=== PATIENT | male | born 1980 | race Caucasian/White ===

== ENCOUNTER 2016-11-21 14:23 | Emergency (ER) | payer MEDICAID, OTHER, SELFPAY ==
[~2016-11-21 14:23] MED LIST: /QUET10TA PO; SERO200T PO; XANA1TAB2 PO
[2016-11-21] MEDS ORDERED: LORazepam 2 MG/ML VIAL (J2060) As Ordered ONE (14:59)
[2016-11-21 15:11] LABS: MEAN CORPUSCULAR HEMOGLOBIN 31.3 pg (27.0-33.0); MEAN CORPUSCULAR HGB CONC 35.3 g/dl (32.0-36.5); MEAN CORPUSCULAR VOLUME 88.8 fl (80.0-96.0); PLATELET COUNT, AUTOMATED 207 k/mm3 (150-450); RED CELL DISTRIBUTION WIDTH 12.4 % (11.5-14.5)
[2016-11-21 15:21] LABS: ANION GAP 10 MEQ/L (8-16); BLOOD UREA NITROGEN 11 MG/DL (7-18); CALCIUM LEVEL 8.5 MG/DL (8.5-10.1); CARBON DIOXIDE LEVEL 26 MEQ/L (21-32); CHLORIDE LEVEL 104 MEQ/L (98-107); CREATININE FOR GFR 0.95 MG/DL (0.70-1.30); GLOMERULAR FILTRATION RATE > 60.0 (>60); GLUCOSE, FASTING 106 MG/DL (70-105); POTASSIUM SERUM 3.9 MEQ/L (3.5-5.1); SODIUM LEVEL 140 MEQ/L (136-145)
[2016-11-21] MEDS ORDERED: hydroCHLOROthiazide 25 MG TAB As Ordered ONE (16:35)
[2016-11-21] MEDS ORDERED: LISINOPRIL 10 MG TAB As Ordered ONE (16:35)
--- NOTE | 2016-11-21 16:37 | REP ---
Head CT without contrast: History: Hypertensive urgency. Comparison study: February 05, 2013. CT findings: Bone window settings demonstrate an intact bony calvarium. There is no evidence of skull fracture or incidental bony calvarial lesion. The visualized paranasal sinuses appear clear. No intraorbital abnormality is seen. On soft tissue window setting images; the lateral, third, and fourth ventricles are normal in size and position. Allred-white differentiation pattern is normal above and below the tentorium. There are is no evidence of intracranial hemorrhage. No mass, edema, infarction, or midline shift is seen. No extra-axial fluid collection is appreciated. Impression: Negative noncontrast head CT. Signed by Rex Blanca MD 11/21/2016 04:28 P
--- NOTE | 2016-11-21 16:57 | REP ---
Chest x-ray: Two views. History: Hypertension. Comparison chest x-ray August 01, 2016. Findings: EKG monitoring electrodes overlie the chest. Lungs are well inflated and clear. Pleural angles are sharp. Heart size is normal. Pulmonary vasculature is not increased. Impression: Negative chest x-ray. Signed by Rex Blanca MD 11/21/2016 05:02 P
[2016-11-21 17:17] LABS: AMPHETAMINES LEVEL URINE NEGATIVE (NEGATIVE); BENZODIAZEPINES URINE NEGATIVE (NEGATIVE); COCAINE METABOLITE URINE NEGATIVE (NEGATIVE); CONTROL LINE INT CTR LINE PRESENT; METHADONE URINE NEGATIVE (NEGATIVE); OPIATES URINE NEGATIVE (NEGATIVE); TRICYCLIC ANTIDEPRESS URINE NEGATIVE (NEGATIVE)
[2016-11-21] MEDS ORDERED: LABETALOL 100 MG TAB As Ordered ONE (17:44)
[2016-11-21] MEDS ORDERED: LABETALOL HCL 100 MG/20 ML VIAL As Ordered ONE (17:44)
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
--- NOTE | 2016-11-21 19:23 | EDDOCDS ---
Physician Documentation [facility] Name: Tej Mccarthy Age: 36 yrs Sex: Male : 1980 Arrival Date: 11/21/2016 Time: 14:23 Bed 9 Private MD: Disposition: 11/21 18:44 Critical Care: Critical care not applicable. pc Disposition: 11/21/16 18:45 Discharged to Home/Self Care. Impression: Essential (primary) hypertension - without urgency or emergency, Anxiety disorder, unspecified. - Condition is Stable. - Discharge Instructions: Hypertension, Generalized Anxiety Disorder. - Prescriptions for Hydrochlorothiazide 25 mg Oral Tablet - take 0.5 tablet by ORAL route once daily .; 15 tablet. Lisinopril 10 mg Oral Tablet - take 1 tablet by ORAL route once daily; 30 tablet. - Medication Reconciliation, Local Pharmacy Hours form. - Follow up: Referral list, As provided by [facility]; When: Call to arrange an appointment; Reason: To establish care. Follow up: Patrick Schneider; When: Call to arrange an appointment; Reason: To establish care. [facility]: [facility]; When: Call to arrange an appointment; Reason: To establish care. - Problem is new. - Symptoms have improved. HPI: 16:22 This 36 yrs old Male presents to ER via Ambulance with complaints of High pc Blood Pressure. 16:22 The history is obtained from the patient. pc 16:33 He was filling out work forms and felt overcome, became very anxious and panicked. This pc has been happening for the past 3-4 weeks. The patient has not recently seen a physician. Historical: - Allergies: no known allergies; - Home Meds: 1. none - PMHx: none; - PSHx: left wrist; - The history from nurses notes was reviewed: and I agree with what is documented. - Social history: Smoking status: Patient states former smoker of tobacco. No barriers to communication noted, The patient speaks fluent Malay, Speaks appropriately for age. - Family history: Not pertinent. - : The pt / caregiver states he / she is not on anticoagulants. Home medication list is obtained from the patient. - Hospitalizations: : No recent hospitalization is reported. - Exposure Risk Screening:: None identified. - Immunization history:: All immunizations up-to-date. - Social history:: the patient is a non-smoker, the patient drinks alcohol, socially. ROS: 16:33 All systems are negative except as listed. pc Exam: 16:33 General Appearance: alert, anxious. pc 16:33 EENT: normal eye inspection, ears, nose and throat normal, pharynx normal, mucous membranes moist 16:33 Neck: The exam reveals no acute abnormalities. ROM is normal and painless. No nuchal rigidity is noted.. 16:33 Respiratory: no respiratory distress, normal breath sounds. 16:33 CVS: regular rhythm, normal S1 and S2, no murmurs, strong peripheral pulses, the patient is tachycardic, at 120 bpm. 16:33 Abdomen: soft, non-tender, no organomegaly, normal bowel sounds. 16:33 Back: normal inspection. 16:33 Skin: skin color is normal, warm, dry. 16:33 Extremities: The extremities have a grossly normal appearance, are non-tender, without acute ROM abnormalities. 16:33 Neuro: oriented x 3, cranial nerves normal as tested, no motor deficits, no sensory deficits. 16:33 Psych: normal mood. Vital Signs: 14:39 BP 180 / 115; Pulse 129; Resp 18; Temp 98.6(O); Pulse Ox 96% on R/A; Weight 104.33 kg / lr2 230.01 lbs (R); Height 5 ft. 11 in. (180.34 cm) (R); 15:45 BP 183 / 108 (auto/); bcj 15:47 Pulse 118 MON; bcj 17:17 BP 183 / 115 (auto/); bcj 17:17 Pulse 122 MON; bcj 17:48 BP 141 / 92 (auto/); bcj 17:48 Pulse 118 MON; bcj 19:15 BP 155 / 98; Pulse 105; Resp 18; Temp 97.8(T); Pulse Ox 97% on R/A; Pain 0/10; esdras 14:39 Body Mass Index 32.08 (104.33 kg, 180.34 cm) lr2 MDM: 14:36 ECG WITH READING ER PHYS+CARDIAG ordered. EDMS 14:47 Test interpretation: EKG. pc 14:56 IV Saline Lock ordered. pc 14:56 LORazepam 1 mg IVP once ordered. pc 14:56 [employer]person [employer]/Pulse Ox/q 30 min VS ordered. pc 14:57 MED Profile Ordered. EDMS 14:57 TSH w/o Free T4 Ordered. EDMS 15:02 COMPLETE BLOOD COUNT Ordered. EDMS 15:02 MANUAL DIFFFERENTIAL Ordered. EDMS 16:04 MED Profile Reviewed. pc 16:04 MANUAL DIFFFERENTIAL Reviewed. pc 16:04 TSH w/o Free T4 Reviewed. pc 16:04 COMPLETE BLOOD COUNT Reviewed. pc 16:13 Drug Eval Toxicology ED Only Ordered. EDMS 16:14 Chest, 2 View (pa\E\lat) Ordered. EDMS 16:14 CT Head Without Contrast Ordered. EDMS 16:22 Lisinopril 10 mg PO once ordered. pc 16:22 Hydrochlorothiazide 25 mg PO once ordered. pc 16:33 Differential Diagnosis: anxiety and panic attacks; elevated BP with prior records pc showing elevated readings and suggesting long-standing HTN. Plan: labs, meds, EKG, imaging. Data reviewed: old medical records, vital signs, nurses notes, EKG(s), lab test results, all radiology studies and available results. Test interpretation: LAB - all labs as ordered have been reviewed, interpreted and considered in the overall management of the clinical presentation;. Physician consultation: Dr. Patrick Schneider regarding patient's condition, and advises the medications/treatment as provided. and agrees with the treatment provided and advises the discharge plans as outlined. 16:40 Financial registration complete. zo 17:18 [facility] Payment Agreement was scanned into [employer] and attached to record. zo 17:20 LORazepam 1 mg IVP once ordered. bcj 17:32 Drug Eval Toxicology ED Only Reviewed. pc 17:32 Chest, 2 View (pa\E\lat) Reviewed. pc 17:32 CT Head Without Contrast Reviewed. pc 17:38 Labetalol 20 mg IVP at bolus once over 2 mins ordered. pc 17:38 Labetalol 100 mg PO once ordered. pc 18:44 The patient has been re-examined and re-evaluated. The patient's symptoms have markedly pc improved after treatment. Other consultation: The ED workers compensation claims supervisor was notified and will evaluate the patient. 18:44 Disposition: The historical points, examination findings, and any diagnostic results pc supporting the provided diagnosis, were discussed with the patient or legal guardian. The need for outpatient follow up with the provider listed on their discharge instructions was discussed. They were encouraged to return to [facility], or the nearest ED, if symptoms worsen/persist, or for any other questions/concerns. EC:47 Rate is 120 beats/min. Rhythm is regular, Sinus tachycardia. QRS [place] is Normal. ME pc interval is normal. QRS interval is normal. QT interval is normal. No Q waves. T waves are Normal. No ST changes noted. Clinical impression: Sinus tachycardia. Administered Medications: 15:04 Drug: LORazepam 1 mg [lorazepam 2 mg/mL injection solution (0.5 mL)] Route: IVP; Site: [facility] right antecubital; 17:20 Drug: Lisinopril 10 mg [lisinopril 10 mg tablet (1 tabs)] Route: PO; j 17:20 Drug: Hydrochlorothiazide 25 mg [hydrochlorothiazide 25 mg tablet (1 tabs)] Route: PO; j 17:20 Drug: LORazepam 1 mg [lorazepam 2 mg/mL injection solution (0.5 mL)] Route: IVP; Site: [facility] right antecubital; 17:50 Drug: Labetalol 20 mg [labetalol 5 mg/mL intravenous solution (3.75 mL)] Route: IVP; [facility] Rate: bolus; Infused Over: 2 mins; Site: right antecubital; 17:50 Drug: Labetalol 100 mg [labetalol 100 mg tablet (1 tabs)] Route: PO; bcj Signatures: Dispatcher [employer] EDMS Stef Johnson MD MD pc Johnson, Bruce, RN RN bcj Michelson, Staci, RN RN srm Olin, Zoeann zo Ogden, KariRN RN ko2 The chart was reviewed and I authenticate all verbal orders and agree with the evaluation and treatment provided.Corrections: (The following items were deleted from the chart) 15:02 14:57 CBC WITH DIFFERENTIAL+LAB ordered. EDMS EDMS Attachments: 17:18 [facility] Payment Agreement zo MTDD
--- NOTE | 2016-11-22 20:42 | ECGEPIP ---
Stationary ECG Study [facility] - ED Test Date: 2016-11-21 Pat Name: HERBERT NOBLE Department: Room: - Gender: M Head Of Science: : 1980 Requested By: Stef Chapman Order Number: [id number] Reading MD: Vikki Arredondo Measurements Intervals [place] Rate: 120 P: 25 NH: 144 QRS: 42 QRSD: 89 T: 0 QT: 296 QTc: 420 Interpretive Statements SINUS TACHYCARDIA ABNORMAL RHYTHM ECG NSTTW ABNORMALITY SIMILAR 02/05/13 Electronically Signed On 11-22-2016 20:42:13 EST by Vikki Arredondo
--- NOTE | 2016-11-23 20:23 | EDDOCDS ---
Physician Documentation [facility] Name: Tej Mccarthy Age: 36 yrs Sex: Male : 1980 Arrival Date: 11/21/2016 Time: 14:23 Bed 9 Private MD: Disposition: 11/21 18:44 Critical Care: Critical care not applicable. pc Disposition: 11/21/16 18:45 Discharged to Home/Self Care. Impression: Essential (primary) hypertension - without urgency or emergency, Anxiety disorder, unspecified. - Condition is Stable. - Discharge Instructions: Hypertension, Generalized Anxiety Disorder. - Prescriptions for Hydrochlorothiazide 25 mg Oral Tablet - take 0.5 tablet by ORAL route once daily .; 15 tablet. Lisinopril 10 mg Oral Tablet - take 1 tablet by ORAL route once daily; 30 tablet. - Medication Reconciliation, Local Pharmacy Hours form. - Follow up: Referral list, As provided by [facility]; When: Call to arrange an appointment; Reason: To establish care. Follow up: Patrick Schneider; When: Call to arrange an appointment; Reason: To establish care. [facility]; When: Call to arrange an appointment; Reason: To establish care. - Problem is new. - Symptoms have improved. HPI: 16:22 This 36 yrs old Male presents to ER via Ambulance with complaints of High pc Blood Pressure. 16:22 The history is obtained from the patient. pc 16:33 He was filling out work forms and felt overcome, became very anxious and panicked. This pc has been happening for the past 3-4 weeks. The patient has not recently seen a physician. Historical: - Allergies: no known allergies; - Home Meds: 1. none - PMHx: none; - PSHx: left wrist; - The history from nurses notes was reviewed: and I agree with what is documented. - Social history: Smoking status: Patient states former smoker of tobacco. No barriers to communication noted, The patient speaks fluent Greek, Speaks appropriately for age. - Family history: Not pertinent. - : The pt / caregiver states he / she is not on anticoagulants. Home medication list is obtained from the patient. - Hospitalizations: : No recent hospitalization is reported. - Exposure Risk Screening:: None identified. - Immunization history:: All immunizations up-to-date. - Social history:: the patient is a non-smoker, the patient drinks alcohol, socially. ROS: 16:33 All systems are negative except as listed. pc Exam: 16:33 General Appearance: alert, anxious. pc 16:33 EENT: normal eye inspection, ears, nose and throat normal, pharynx normal, mucous membranes moist 16:33 Neck: The exam reveals no acute abnormalities. ROM is normal and painless. No nuchal rigidity is noted.. 16:33 Respiratory: no respiratory distress, normal breath sounds. 16:33 CVS: regular rhythm, normal S1 and S2, no murmurs, strong peripheral pulses, the patient is tachycardic, at 120 bpm. 16:33 Abdomen: soft, non-tender, no organomegaly, normal bowel sounds. 16:33 Back: normal inspection. 16:33 Skin: skin color is normal, warm, dry. 16:33 Extremities: The extremities have a grossly normal appearance, are non-tender, without acute ROM abnormalities. 16:33 Neuro: oriented x 3, cranial nerves normal as tested, no motor deficits, no sensory deficits. 16:33 Psych: normal mood. Vital Signs: 14:39 BP 180 / 115; Pulse 129; Resp 18; Temp 98.6(O); Pulse Ox 96% on R/A; Weight 104.33 kg / lr2 230.01 lbs (R); Height 5 ft. 11 in. (180.34 cm) (R); 15:45 BP 183 / 108 (auto/); bcj 15:47 Pulse 118 MON; bcj 17:17 BP 183 / 115 (auto/); bcj 17:17 Pulse 122 MON; bcj 17:48 BP 141 / 92 (auto/); bcj 17:48 Pulse 118 MON; bcj 19:15 BP 155 / 98; Pulse 105; Resp 18; Temp 97.8(T); Pulse Ox 97% on R/A; Pain 0/10; esdras 14:39 Body Mass Index 32.08 (104.33 kg, 180.34 cm) lr2 MDM: 14:36 ECG WITH READING ER PHYS+CARDIAG ordered. EDMS 14:47 Test interpretation: EKG. pc 14:56 IV Saline Lock ordered. pc 14:56 LORazepam 1 mg IVP once ordered. pc 14:56 Primer Waterproofing Machine Adjuster/Pulse Ox/q 30 min VS ordered. pc 14:57 MED Profile Ordered. EDMS 14:57 TSH w/o Free T4 Ordered. EDMS 15:02 COMPLETE BLOOD COUNT Ordered. EDMS 15:02 MANUAL DIFFFERENTIAL Ordered. EDMS 16:04 MED Profile Reviewed. pc 16:04 MANUAL DIFFFERENTIAL Reviewed. pc 16:04 TSH w/o Free T4 Reviewed. pc 16:04 COMPLETE BLOOD COUNT Reviewed. pc 16:13 Drug Eval Toxicology ED Only Ordered. EDMS 16:14 Chest, 2 View (pa\E\lat) Ordered. EDMS 16:14 CT Head Without Contrast Ordered. EDMS 16:22 Lisinopril 10 mg PO once ordered. pc 16:22 Hydrochlorothiazide 25 mg PO once ordered. pc 16:33 Differential Diagnosis: anxiety and panic attacks; elevated BP with prior records pc showing elevated readings and suggesting long-standing HTN. Plan: labs, meds, EKG, imaging. Data reviewed: old medical records, vital signs, nurses notes, EKG(s), lab test results, all radiology studies and available results. Test interpretation: LAB - all labs as ordered have been reviewed, interpreted and considered in the overall management of the clinical presentation;. Physician consultation: Dr. Patrick Schneider regarding patient's condition, and advises the medications/treatment as provided. and agrees with the treatment provided and advises the discharge plans as outlined. 16:40 Financial registration complete. zo 17:18 [facility] [place] Payment Agreement was scanned into [employer] and attached to record. zo 17:20 LORazepam 1 mg IVP once ordered. bcj 17:32 Drug Eval Toxicology ED Only Reviewed. pc 17:32 Chest, 2 View (pa\E\lat) Reviewed. pc 17:32 CT Head Without Contrast Reviewed. pc 17:38 Labetalol 20 mg IVP at bolus once over 2 mins ordered. pc 17:38 Labetalol 100 mg PO once ordered. pc 18:44 The patient has been re-examined and re-evaluated. The patient's symptoms have markedly pc improved after treatment. Other consultation: The ED rattan worker was notified and will evaluate the patient. 18:44 Disposition: The historical points, examination findings, and any diagnostic results pc supporting the provided diagnosis, were discussed with the patient or legal guardian. The need for outpatient follow up with the provider listed on their discharge instructions was discussed. They were encouraged to return to [facility], or the nearest ED, if symptoms worsen/persist, or for any other questions/concerns. 11/22 10:05 ECG/EKG was scanned into [employer] and attached to record. 10:05 PCR was scanned into [employer] and attached to record. 10:06 Rhythm Strip was scanned into [employer] and attached to record. EC/30 14:47 Rate is 120 beats/min. Rhythm is regular, Sinus tachycardia. QRS [place] is Normal. RI pc interval is normal. QRS interval is normal. QT interval is normal. No Q waves. T waves are Normal. No ST changes noted. Clinical impression: Sinus tachycardia. Administered Medications: 15:04 Drug: LORazepam 1 mg [lorazepam 2 mg/mL injection solution (0.5 mL)] Route: IVP; Site: [facility] right antecubital; 17:20 Drug: Lisinopril 10 mg [lisinopril 10 mg tablet (1 tabs)] Route: PO; j 17:20 Drug: Hydrochlorothiazide 25 mg [hydrochlorothiazide 25 mg tablet (1 tabs)] Route: PO; [facility] 17:20 Drug: LORazepam 1 mg [lorazepam 2 mg/mL injection solution (0.5 mL)] Route: IVP; Site: j right antecubital; 17:50 Drug: Labetalol 20 mg [labetalol 5 mg/mL intravenous solution (3.75 mL)] Route: IVP; j Rate: bolus; Infused Over: 2 mins; Site: right antecubital; 17:50 Drug: Labetalol 100 mg [labetalol 100 mg tablet (1 tabs)] Route: PO; bcj Signatures: Dispatcher MedHo EDMS Stef Johnson MD MD pc Johnson, Bruce, RN RN Roxy Ro RN RN [facility] Erica Elizabeth, Kika Traore KariRN RN ko2 The chart was reviewed and I authenticate all verbal orders and agree with the evaluation and treatment provided.Corrections: (The following items were deleted from the chart) 15:02 14:57 CBC WITH DIFFERENTIAL+LAB ordered. EDMS EDMS Attachments: 17:18 [facility] Payment Agreement zo 11/22 10:05 ECG/EKG gb Chart Complete MTDD
--- NOTE | 2016-11-23 20:23 | EDDOCDS ---
Physician Documentation [facility] Name: Tej Mccarthy Age: 36 yrs Sex: Male : 1980 Arrival Date: 11/21/2016 Time: 14:23 Bed 9 Private MD: Disposition: 11/21 18:44 Critical Care: Critical care not applicable. pc Disposition: 11/21/16 18:45 Discharged to Home/Self Care. Impression: Essential (primary) hypertension - without urgency or emergency, Anxiety disorder, unspecified. - Condition is Stable. - Discharge Instructions: Hypertension, Generalized Anxiety Disorder. - Prescriptions for Hydrochlorothiazide 25 mg Oral Tablet - take 0.5 tablet by ORAL route once daily .; 15 tablet. Lisinopril 10 mg Oral Tablet - take 1 tablet by ORAL route once daily; 30 tablet. - Medication Reconciliation, Local Pharmacy Hours form. - Follow up: Referral list, As provided by [facility]; When: Call to arrange an appointment; Reason: To establish care. Follow up: Patrick Schneider; When: Call to arrange an appointment; Reason: To establish care. [facility]; When: Call to arrange an appointment; Reason: To establish care. - Problem is new. - Symptoms have improved. HPI: 16:22 This 36 yrs old Male presents to ER via Ambulance with complaints of High pc Blood Pressure. 16:22 The history is obtained from the patient. pc 16:33 He was filling out work forms and felt overcome, became very anxious and panicked. This pc has been happening for the past 3-4 weeks. The patient has not recently seen a physician. Historical: - Allergies: no known allergies; - Home Meds: 1. none - PMHx: none; - PSHx: left wrist; - The history from nurses notes was reviewed: and I agree with what is documented. - Social history: Smoking status: Patient states former smoker of tobacco. No barriers to communication noted, The patient speaks fluent Sinhala, Speaks appropriately for age. - Family history: Not pertinent. - : The pt / caregiver states he / she is not on anticoagulants. Home medication list is obtained from the patient. - Hospitalizations: : No recent hospitalization is reported. - Exposure Risk Screening:: None identified. - Immunization history:: All immunizations up-to-date. - Social history:: the patient is a non-smoker, the patient drinks alcohol, socially. ROS: 16:33 All systems are negative except as listed. pc Exam: 16:33 General Appearance: alert, anxious. pc 16:33 EENT: normal eye inspection, ears, nose and throat normal, pharynx normal, mucous membranes moist 16:33 Neck: The exam reveals no acute abnormalities. ROM is normal and painless. No nuchal rigidity is noted.. 16:33 Respiratory: no respiratory distress, normal breath sounds. 16:33 CVS: regular rhythm, normal S1 and S2, no murmurs, strong peripheral pulses, the patient is tachycardic, at 120 bpm. 16:33 Abdomen: soft, non-tender, no organomegaly, normal bowel sounds. 16:33 Back: normal inspection. 16:33 Skin: skin color is normal, warm, dry. 16:33 Extremities: The extremities have a grossly normal appearance, are non-tender, without acute ROM abnormalities. 16:33 Neuro: oriented x 3, cranial nerves normal as tested, no motor deficits, no sensory deficits. 16:33 Psych: normal mood. Vital Signs: 14:39 BP 180 / 115; Pulse 129; Resp 18; Temp 98.6(O); Pulse Ox 96% on R/A; Weight 104.33 kg / lr2 230.01 lbs (R); Height 5 ft. 11 in. (180.34 cm) (R); 15:45 BP 183 / 108 (auto/); bcj 15:47 Pulse 118 MON; bcj 17:17 BP 183 / 115 (auto/); bcj 17:17 Pulse 122 MON; bcj 17:48 BP 141 / 92 (auto/); bcj 17:48 Pulse 118 MON; bcj 19:15 BP 155 / 98; Pulse 105; Resp 18; Temp 97.8(T); Pulse Ox 97% on R/A; Pain 0/10; esdras 14:39 Body Mass Index 32.08 (104.33 kg, 180.34 cm) lr2 MDM: 14:36 ECG WITH READING ER PHYS+CARDIAG ordered. EDMS 14:47 Test interpretation: EKG. pc 14:56 IV Saline Lock ordered. pc 14:56 LORazepam 1 mg IVP once ordered. pc 14:56 Roofing Subcontractor/Pulse Ox/q 30 min VS ordered. pc 14:57 MED Profile Ordered. EDMS 14:57 TSH w/o Free T4 Ordered. EDMS 15:02 COMPLETE BLOOD COUNT Ordered. EDMS 15:02 MANUAL DIFFFERENTIAL Ordered. EDMS 16:04 MED Profile Reviewed. pc 16:04 MANUAL DIFFFERENTIAL Reviewed. pc 16:04 TSH w/o Free T4 Reviewed. pc 16:04 COMPLETE BLOOD COUNT Reviewed. pc 16:13 Drug Eval Toxicology ED Only Ordered. EDMS 16:14 Chest, 2 View (pa\E\lat) Ordered. EDMS 16:14 CT Head Without Contrast Ordered. EDMS 16:22 Lisinopril 10 mg PO once ordered. pc 16:22 Hydrochlorothiazide 25 mg PO once ordered. pc 16:33 Differential Diagnosis: anxiety and panic attacks; elevated BP with prior records pc showing elevated readings and suggesting long-standing HTN. Plan: labs, meds, EKG, imaging. Data reviewed: old medical records, vital signs, nurses notes, EKG(s), lab test results, all radiology studies and available results. Test interpretation: LAB - all labs as ordered have been reviewed, interpreted and considered in the overall management of the clinical presentation;. Physician consultation: Dr. Patrick Schneider regarding patient's condition, and advises the medications/treatment as provided. and agrees with the treatment provided and advises the discharge plans as outlined. 16:40 Financial registration complete. zo 17:18 [facility] [place] Agreement was scanned into [employer] and attached to record. zo 17:20 LORazepam 1 mg IVP once ordered. bcj 17:32 Drug Eval Toxicology ED Only Reviewed. pc 17:32 Chest, 2 View (pa\E\lat) Reviewed. pc 17:32 CT Head Without Contrast Reviewed. pc 17:38 Labetalol 20 mg IVP at bolus once over 2 mins ordered. pc 17:38 Labetalol 100 mg PO once ordered. pc 18:44 The patient has been re-examined and re-evaluated. The patient's symptoms have markedly pc improved after treatment. Other consultation: The ED demolition worker was notified and will evaluate the patient. 18:44 Disposition: The historical points, examination findings, and any diagnostic results pc supporting the provided diagnosis, were discussed with the patient or legal guardian. The need for outpatient follow up with the provider listed on their discharge instructions was discussed. They were encouraged to return to [facility], or the nearest ED, if symptoms worsen/persist, or for any other questions/concerns. 11/22 10:05 ECG/EKG was scanned into [employer] and attached to record. 10:05 PCR was scanned into [employer] and attached to record. 10:06 Rhythm Strip was scanned into [employer] and attached to record. EC/30 14:47 Rate is 120 beats/min. Rhythm is regular, Sinus tachycardia. QRS [place] is Normal. ID pc interval is normal. QRS interval is normal. QT interval is normal. No Q waves. T waves are Normal. No ST changes noted. Clinical impression: Sinus tachycardia. Administered Medications: 15:04 Drug: LORazepam 1 mg [lorazepam 2 mg/mL injection solution (0.5 mL)] Route: IVP; Site: [facility] right antecubital; 17:20 Drug: Lisinopril 10 mg [lisinopril 10 mg tablet (1 tabs)] Route: PO; j 17:20 Drug: Hydrochlorothiazide 25 mg [hydrochlorothiazide 25 mg tablet (1 tabs)] Route: PO; [facility] 17:20 Drug: LORazepam 1 mg [lorazepam 2 mg/mL injection solution (0.5 mL)] Route: IVP; Site: j right antecubital; 17:50 Drug: Labetalol 20 mg [labetalol 5 mg/mL intravenous solution (3.75 mL)] Route: IVP; j Rate: bolus; Infused Over: 2 mins; Site: right antecubital; 17:50 Drug: Labetalol 100 mg [labetalol 100 mg tablet (1 tabs)] Route: PO; bcj Signatures: Dispatcher MedHo EDMS Stef Johnson MD MD pc Johnson, Bruce, RN RN Roxy Ro RN RN [facility] Erica Elizabeth, Kika Traore KariRN RN ko2 The chart was reviewed and I authenticate all verbal orders and agree with the evaluation and treatment provided.Corrections: (The following items were deleted from the chart) 15:02 14:57 CBC WITH DIFFERENTIAL+LAB ordered. EDMS EDMS Attachments: 17:18 [facility] Payment Agreement zo 11/22 10:05 ECG/EKG gb Chart Complete MTDD
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
== END 2016-11-21 19:22 | disposition home or self-care (01) ==
LOC: M ED 14:23
DX: F41.9 Anxiety disorder, unspecified (principal); I10 Essential (primary) hypertension; Z87.891 Personal history of nicotine dependence
CPT/HCPCS: 36415; 70450; 71020; 80048; 80306; 84443; 85007; 85027; 93005; 93041; 96374; 96375; 96376; 99285; J2060

== ENCOUNTER → 2016-12-09 | Outpatient (REF) | payer OTHER ==
[2016-12-09 17:58] LABS: CHOLESTEROL LEVEL 247 MG/DL (<200); TRIGLYCERIDES LEVEL 424 MG/DL (<150)
== END ==
LOC: M SFHCPLAZ 11:12
PROVIDERS: ATTEND Internal Medicine
DX: F41.9 Anxiety disorder, unspecified (principal); Z13.1 Encounter for screening for diabetes mellitus; Z13.220 Encounter for screening for lipoid disorders; I10 Essential (primary) hypertension

== ENCOUNTER 2018-07-04 17:51 | Observation (INO) | payer MEDICAID, OTHER ==
[2018-07-04 19:17] LABS: BASO # 0.1 10^3/uL (0.0-0.2); BASO % 0.5 % (0.0-1.0); EOS # 0.1 10^3/uL (0.0-0.50); EOS % 0.8 % (0.0-3.0); HEMATOCRIT 40.8 % (42.0-52.0); HEMOGLOBIN 14.7 g/dl (13.5-17.5); IMMATURE GRANULOCYTE % 0.3 % (0-3.0); LYMPH % 17.2 % (24.0-44.0); MEAN CORPUSCULAR HEMOGLOBIN 32.7 pg (27.0-33.0); MEAN CORPUSCULAR VOLUME 90.7 fl (80.0-96.0); MONO # 0.6 10^3/uL (0.0-0.8); MONO % 5.3 % (0.0-5.0); NEUTROPHILS # 8.8 10^3/uL (1.8-7.7); NEUTROPHILS % 75.9 % (36.0-66.0); PLATELET COUNT, AUTOMATED 215 10^3/uL (150-450); RED CELL DISTRIBUTION WIDTH 11.5 % (11.5-14.5); WHITE BLOOD COUNT 11.6 10^3/uL (4.0-10.0)
[2018-07-04] MEDS: MORPHINE 4 MG/ML 1ML VIAL/SYRINGE (J2270) IV (19:41)
[2018-07-04] MEDS: NS 1,000 ML IV (19:43)
[2018-07-04] MEDS: LISINOPRIL 10 MG TAB PO (19:45)
[2018-07-04] MEDS: PENICILLIN V POTASSIUM 500 MG TAB PO (19:45)
[2018-07-04] MEDS: hydroCHLOROthiazide 12.5 MG CAPSULE PO (19:45)
[2018-07-04 20:22] LABS: ALKALINE PHOSPHATASE 51 U/L (45-117); ANION GAP 7 MEQ/L (8-16); CALCIUM LEVEL 8.5 MG/DL (8.5-10.1); CARBON DIOXIDE LEVEL 25 MEQ/L (21-32); CHLORIDE LEVEL 107 MEQ/L (98-107); CK-MB VALUE MASS < 1.0 NG/ML (<3.6); CPK CREATINE PHOSPHOKINASE 136 U/L (39-308); CREATININE FOR GFR 0.92 MG/DL (0.70-1.30); GLOMERULAR FILTRATION RATE > 60.0 (>60); POTASSIUM SERUM 4.4 MEQ/L (3.5-5.1); SODIUM LEVEL 139 MEQ/L (136-145)
[2018-07-04 20:23] LABS: ALBUMIN 4.1 GM/DL (3.2-5.2); BILIRUBIN,DIRECT < 0.1 MG/DL (0.0-0.2); BILIRUBIN,TOTAL 0.5 MG/DL (0.2-1.0); GLUCOSE, FASTING 140 MG/DL (70-100); LIPASE 131 U/L (73-393); TROPONIN I < 0.02 NG/ML (< 0.10)
[2018-07-04 20:24] LABS: MB/CK RELATIVE INDEX 0.74 (< OR =4)
[2018-07-04 20:55] LABS: ALT/SGPT 38 U/L (12-78); AST/SGOT 47 U/L (7-37)
[2018-07-04 20:56] LABS: ALBUMIN/GLOBULIN RATIO 1.24 (1.00-1.93); BLOOD UREA NITROGEN 12 MG/DL (7-18); TOTAL PROTEIN 7.4 GM/DL (6.4-8.2)
[2018-07-04] MEDS: LABETALOL HCL 100 MG/20 ML VIAL IV (21:42)
[2018-07-04] MEDS: NIFEdipine 30 MG XL TAB PO (23:37)
[2018-07-04] MEDS: PERCOCET 5MG/325MG TAB PO (23:39)
[2018-07-05 02:04] LABS: TROPONIN I < 0.02 NG/ML (< 0.10)
[2018-07-05] MEDS: PERCOCET 5MG/325MG TAB PO ×3 (06:15→21:43)
[2018-07-05] MEDS: LABETALOL HCL 100 MG/20 ML VIAL IV (07:07)
[2018-07-05] MEDS: cloNIDine 0.1 MG TAB PO ×4 (07:50→23:14)
[2018-07-05 08:36] LABS: HEMATOCRIT 40.8 % (42.0-52.0); MEAN CORPUSCULAR HEMOGLOBIN 31.5 pg (27.0-33.0); MEAN CORPUSCULAR HGB CONC 34.3 g/dl (32.0-36.5); MEAN CORPUSCULAR VOLUME 91.9 fl (80.0-96.0); PLATELET COUNT, AUTOMATED 162 10^3/uL (150-450); RED BLOOD COUNT 4.44 10^6/uL (4.30-6.10); RED CELL DISTRIBUTION WIDTH 11.7 % (11.5-14.5); WHITE BLOOD COUNT 7.9 10^3/uL (4.0-10.0)
[2018-07-05 08:58] LABS: ANION GAP 7 MEQ/L (8-16); BLOOD UREA NITROGEN 13 MG/DL (7-18); CALCIUM LEVEL 8.8 MG/DL (8.5-10.1); CARBON DIOXIDE LEVEL 29 MEQ/L (21-32); CHLORIDE LEVEL 103 MEQ/L (98-107); CREATININE FOR GFR 0.84 MG/DL (0.70-1.30); GLOMERULAR FILTRATION RATE > 60.0 (>60); GLUCOSE, FASTING 124 MG/DL (70-100); POTASSIUM SERUM 3.8 MEQ/L (3.5-5.1); SODIUM LEVEL 139 MEQ/L (136-145)
[2018-07-05] MEDS ORDERED: LISINOPRIL 10 MG TAB PO (09:00)
[2018-07-05] MEDS: LISINOPRIL 20 MG TAB PO (09:29)
[2018-07-05] MEDS: ENOXAPARIN 40 MG/0.4 ML SYRINGE (J1650) SC (09:29)
[2018-07-05] MEDS ORDERED: diphenhydrAMINE 50 MG CAP PO (10:45)
[2018-07-05] MEDS: AUGMENTIN 875 MG TAB PO ×2 (14:00→21:42)
[2018-07-05] MEDS: NIFEdipine 30 MG XL TAB PO (21:43)
[2018-07-06] MEDS: cloNIDine 0.1 MG TAB PO (05:50)
[2018-07-06 06:56] LABS: HEMATOCRIT 41.6 % (42.0-52.0); HEMOGLOBIN 14.3 g/dl (13.5-17.5); MEAN CORPUSCULAR HEMOGLOBIN 32.1 pg (27.0-33.0); MEAN CORPUSCULAR HGB CONC 34.4 g/dl (32.0-36.5); MEAN CORPUSCULAR VOLUME 93.3 fl (80.0-96.0); PLATELET COUNT, AUTOMATED 178 10^3/uL (150-450); RED BLOOD COUNT 4.46 10^6/uL (4.30-6.10); RED CELL DISTRIBUTION WIDTH 11.7 % (11.5-14.5); WHITE BLOOD COUNT 7.4 10^3/uL (4.0-10.0)
[2018-07-06 07:16] LABS: ANION GAP 5 MEQ/L (8-16); BLOOD UREA NITROGEN 18 MG/DL (7-18); CARBON DIOXIDE LEVEL 31 MEQ/L (21-32); CHLORIDE LEVEL 104 MEQ/L (98-107); CREATININE FOR GFR 0.95 MG/DL (0.70-1.30); GLOMERULAR FILTRATION RATE > 60.0 (>60); GLUCOSE, FASTING 105 MG/DL (70-100); POTASSIUM SERUM 3.9 MEQ/L (3.5-5.1); SODIUM LEVEL 140 MEQ/L (136-145)
[2018-07-06] MEDS: LISINOPRIL 20 MG TAB PO (08:21)
[2018-07-06] MEDS: ENOXAPARIN 40 MG/0.4 ML SYRINGE (J1650) SC (08:21)
[2018-07-06] MEDS: AUGMENTIN 875 MG TAB PO (08:21)
[2018-07-06] MEDS: PERCOCET 5MG/325MG TAB PO (08:23)
[2018-07-06] MEDS: INFLUENZA QUADRIVALENT PF VACCINE 0.5ML SYRINGE (90686) IM (08:24)
== END 2018-07-06 11:27 | disposition home or self-care (01) ==
LOC: M MSPAV 07-05 13:30 → M ED 17:51 → M ED INP 21:59
DX: I16.0 Hypertensive urgency (principal); Z91.19 Patient's noncompliance with other medical treatment and regimen; K02.9 Dental caries, unspecified; F41.9 Anxiety disorder, unspecified
CPT/HCPCS: J2270

== ENCOUNTER 2019-04-14 21:58 | Emergency (ER) | payer MEDICAID, OTHER ==
[~2019-04-14 21:58] MED LIST changes: -/QUET10TA PO; +AMOX875T2 PO; +IBUP80TA PO; +LISI-538 PO; +NIFE30TA7 PO; +PERCOCET PO; +SERO1TAB PO; +TYLE500T78 PO
[2019-04-14 22:51] LABS: HEMATOCRIT 43.3 % (42.0-52.0); HEMOGLOBIN 14.9 g/dl (13.5-17.5); MEAN CORPUSCULAR HEMOGLOBIN 32.2 pg (27.0-33.0); MEAN CORPUSCULAR HGB CONC 34.4 g/dl (32.0-36.5); MEAN CORPUSCULAR VOLUME 93.5 fl (80.0-96.0); PLATELET COUNT, AUTOMATED 200 10^3/uL (150-450); RED BLOOD COUNT 4.63 10^6/uL (4.30-6.10); WHITE BLOOD COUNT 7.3 10^3/uL (4.0-10.0)
[2019-04-14 23:15] LABS: AMPHETAMINES LEVEL URINE NEGATIVE (NEGATIVE); BARBITURATES URINE NEGATIVE (NEGATIVE); BENZODIAZEPINES URINE NEGATIVE (NEGATIVE); CANNABINOIDS URINE POSITIVE (NEGATIVE); COCAINE METABOLITE URINE NEGATIVE (NEGATIVE); METHADONE URINE NEGATIVE (NEGATIVE); OPIATES URINE NEGATIVE (NEGATIVE); PHENCYCLIDINE URINE NEGATIVE (NEGATIVE)
[2019-04-14 23:58] LABS: ACETAMINOPHEN LEVEL < 2.0 UG/ML (10.0-30.0); ALBUMIN 4.4 GM/DL (3.2-5.2); ALT/SGPT 25 U/L (12-78); BILIRUBIN,DIRECT 0.3 MG/DL (0.0-0.2); BILIRUBIN,TOTAL 1.1 MG/DL (0.2-1.0); BLOOD UREA NITROGEN 18 MG/DL (7-18); CALCIUM LEVEL 8.5 MG/DL (8.5-10.1); CARBON DIOXIDE LEVEL 24 MEQ/L (21-32); CHLORIDE LEVEL 105 MEQ/L (98-107); CREATININE FOR GFR 1.16 MG/DL (0.70-1.30); ETHYL ALCOHOL (ETHANOL) 0.196 % (0.000-0.010); GLOMERULAR FILTRATION RATE > 60.0 (>60); GLUCOSE, FASTING 109 MG/DL (70-100); POTASSIUM SERUM 3.7 MEQ/L (3.5-5.1); SALICYLATE LEVEL < 1.7 MG/DL (5.0-30.0); SODIUM LEVEL 140 MEQ/L (136-145); TOTAL PROTEIN 7.8 GM/DL (6.4-8.2)
[2019-04-15 05:43] VITALS: BP 159/99
== END 2019-04-15 06:58 | disposition home or self-care (01) ==
LOC: M ED 21:58
DX: F10.129 Alcohol abuse with intoxication, unspecified (principal); F91.8 Other conduct disorders; I10 Essential (primary) hypertension
CPT/HCPCS: 80048; 80076; 80307; 84443; 85027; 99284; G0480

== ENCOUNTER 2024-05-18 09:53 | Emergency (ER) | payer MEDICAID, SELFPAY ==
[~2024-05-18] VITALS: Ht 180.3 cm; Wt 108.0 kg
[~2024-05-18 09:53] MED LIST changes: -LISI-538 PO; +LISI20TA33 PO; +NIFE1TAB52 PO; -NIFE30TA7 PO
[2024-05-18 09:54] VITALS: BP 178/97; TEMP 97.7; O2SAT 100
[2024-05-18 11:18] LABS: BASO % 0.4 % (0.0-1.0); EOS # 0.1 10^3/uL (0.0-0.5); EOS % 0.6 % (0.0-3.0); HEMATOCRIT 41.6 % (42.0-52.0); HEMOGLOBIN 14.1 g/dl (13.5-17.5); LYMPH # 1.3 10^3/uL (1.5-5.0); LYMPH % 15.7 % (24.0-44.0); MEAN CORPUSCULAR HEMOGLOBIN 31.8 pg (27.0-33.0); MEAN CORPUSCULAR HGB CONC 33.9 g/dl (32.0-36.5); MEAN CORPUSCULAR VOLUME 93.7 fl (80.0-96.0); MONO # 0.6 10^3/uL (0.0-0.8); MONO % 6.9 % (2.0-8.0); NEUTROPHILS # 6.4 10^3/uL (1.5-8.5); NEUTROPHILS % 76.2 % (36.0-66.0); PLATELET COUNT, AUTOMATED 217 10^3/uL (150-450); RED BLOOD COUNT 4.44 10^6/uL (4.30-6.10); WHITE BLOOD COUNT 8.4 10^3/uL (4.0-10.0)
[2024-05-18 11:30] LABS: PARTIAL THROMBOPLASTIN TIME 24.3 SECONDS (24.8-34.2); PROTHROMBIN TIME 12.9 SECONDS (12.5-14.5)
[2024-05-18 11:35] LABS: ERYTHROCYTE SEDIMENTATION RATE 5 mm/hr (0-15)
[2024-05-18 11:50] LABS: C REACTIVE PROTEIN QUANTITATIV < 0.40 MG/DL (<1.0)
[2024-05-18 11:51] LABS: ALBUMIN 3.9 G/DL (3.2-5.2); ALKALINE PHOSPHATASE 56 U/L (46-116); ALT/SGPT 17 U/L (7.0-40); AST/SGOT 22 U/L (<34); BILIRUBIN,DIRECT 0.2 MG/DL (<0.4); BILIRUBIN,TOTAL 0.6 MG/DL (0.3-1.2); BLOOD UREA NITROGEN 19 MG/DL (9-23); CALCIUM LEVEL 9.2 MG/DL (8.5-10.1); CARBON DIOXIDE LEVEL 30 MMOL/L (20-31); CHLORIDE LEVEL 105 MMOL/L (98-107); CREATININE FOR GFR 0.84 MG/DL (0.70-1.30); GLOMERULAR FILTRATION RATE > 60.0 (>60); GLUCOSE, FASTING 99 MG/DL (60-100); POTASSIUM SERUM 4.6 MMOL/L (3.5-5.1); SODIUM LEVEL 139 MMOL/L (136-145); TOTAL PROTEIN 6.6 G/DL (5.7-8.2)
[2024-05-18] MEDS: KETOROLAC 30 MG/ML 1ML VIAL IM ONE (12:03)
[2024-05-18] MEDS ORDERED: ONDANSETRON 4MG 2ML VIAL As Ordered ONE (13:23)
[2024-05-18] MEDS: ONDANSETRON 4MG 2ML VIAL IV ONE (13:25)
[2024-05-18] MEDS ORDERED: ISOVUE-370 76% 100ML VIAL As Ordered ONE (13:25)
[2024-05-18] MEDS: MORPHINE 4 MG/ML 1ML VIAL IV ONE (13:26)
[2024-05-18 14:07] LABS: INR 1.07; PARTIAL THROMBOPLASTIN TIME 24.3 SECONDS (24.8-34.2); PROTHROMBIN TIME 13.6 SECONDS (12.5-14.5)
[2024-05-19] MEDS ORDERED: ECOT81TA5 PO (08:01)
== END 2024-05-18 15:54 | disposition home or self-care (01) ==
LOC: M ED 09:53
DX: M25.562 Pain in left knee (principal); M25.462 Effusion, left knee; M71.22 Synovial cyst of popliteal space [Baker], left knee; I10 Essential (primary) hypertension; F41.9 Anxiety disorder, unspecified; Z79.1 Long term (current) use of non-steroidal anti-inflammatories (NSAID)
CPT/HCPCS: 73564; 73590; 75635; 80048; 80076; 85025; 85610; 85652; 85730; 86140; 87040; 93971; 96372; 96374; 96375; 99283; J1885; J2405; Q9967

== ENCOUNTER 2024-05-19 07:47 | Emergency (ER) | payer SELFPAY ==
[2024-05-19] MEDS ORDERED: ECOT81TA5 PO (08:01)
[2024-05-19] MEDS ORDERED: KETOROLAC 30 MG/ML 1ML VIAL IV ONE (12:00)
[2024-05-19] MEDS: KETOROLAC 60MG 2ML VIAL IM ONE (12:05)
[2024-05-19] MEDS: KETOROLAC 30 MG/ML 1ML VIAL IM ONE (12:12)
[2024-05-19] MEDS: LIDOCAINE 5% (LIDODERM) PATCH TD ONE (12:12)
[2024-05-19] MEDS: ACETAMINOPHEN 500 MG TAB PO ONE (12:13)
[2024-05-19 12:30] VITALS: BP 183/98; TEMP 97.9; O2SAT 97
== END 2024-05-19 12:31 | disposition home or self-care (01) ==
LOC: M ED 07:47
DX: M25.562 Pain in left knee (principal); M71.22 Synovial cyst of popliteal space [Baker], left knee; Z79.82 Long term (current) use of aspirin
CPT/HCPCS: 96372; 99283; J1885

== ENCOUNTER → 2024-05-25 | Outpatient (CLI) | payer SELFPAY ==
[~2024-05-25] MED LIST changes: +ECOT81TA5 PO
== END ==
LOC: M RAD 08:59
PROVIDERS: ATTEND Orthopaedic Surgery
DX: M71.22 Synovial cyst of popliteal space [Baker], left knee (principal); M25.462 Effusion, left knee